=== PATIENT | male | born 1970 | race Caucasian/White ===

== ENCOUNTER 2022-12-22 16:08 | Outpatient (CLI) | payer BC, SELFPAY ==
--- NOTE | ~2022-12-22 | XR_ITS ---
AP and oblique views of the bilateral SI joints Comments: Rheumatoid arthritis FINDINGS: Bilateral SI joints and bilateral hip joints appear unremarkable. No erosive or sclerotic c hange. No degenerative change. Soft tissues are unremarkable. IMPRESSION: Unremarkable exam. Reviewed, dictated and finalized at location M. IMPRESSION: Unremarkable exam.
--- NOTE | ~2022-12-22 | XR_ITS ---
Right Shoulder Technique: AP and scapular Y views were obtained. Clinical History: Rheumatoid arthritis Findings: No fracture or dislocation is seen. Osseous alignment is anatomic. The glenohumeral and acr omioclavicular joint spaces are preserved. Soft tissues are unremarkable. Impression: Unremarkable right shoulder radiographs. Reviewed, dictated and finalized at location . Impression: Unremarkable right shoulder radiographs.
--- NOTE | ~2022-12-22 | XR_ITS ---
Left foot Technique: AP and lateral standing views were obtained. Clinical History: Rheumatoid arthritis Findings: No acute fracture or dislocation is seen. Osseous alignment is anatomic. Joint spaces are p reserved without erosive or degenerative change. Soft tissues are unremarkable. Impression: Unremarkable left foot radiographs. Reviewed, dictated and finalized at location . Impression: Unremarkable left foot radiographs.
--- NOTE | ~2022-12-22 | XR_ITS ---
Bilateral Hands Technique: Bilateral PA, oblique, and lateral views, and ball-catcher's view were obtained. Clinical History: Rheumatoid arthritis Findings: No acute fracture or dislocation is seen. Osseous alignment is anatomic. Joint spaces are p reserved. Soft tissues are unremarkable. Impression: Unremarkable bilateral hand radiographs. Reviewed, dictated and finalized at location . Impression: Unremarkable bilateral hand radiographs.
--- NOTE | ~2022-12-22 | XR_ITS ---
2 views of the left clavicle CLINICAL HISTORY: Rheumatoid arthritis FINDINGS: No fracture or dislocation seen. No erosive changes identified. Glenohumeral and AC joints are intact. Soft tissues are unremarkable. IMPRESSION: Unremarkable exam. Reviewed, dictated and finalized at location M. IMPRESSION: Unremarkable exam.
--- NOTE | ~2022-12-22 | XR_ITS ---
Right foot Technique: AP and lateral standing views were obtained. Clinical History: Rheumatoid arthritis Findings: No acute fracture or dislocation is seen. Osseous alignment is anatomic. Joint spaces are p reserved without erosive or degenerative change. Soft tissues are unremarkable. Impression: Unremarkable right foot radiographs. Reviewed, dictated and finalized at location . Impression: Unremarkable right foot radiographs.
--- NOTE | ~2022-12-22 | XR_ITS ---
Lumbosacral Spine: AP, oblique, and lateral views Clinical History: Pain Findings: The normal lordotic curve is maintained. No fracture or subluxation seen. There are mild de generative disc changes throughout the lumbar spine. There are mild facet joint degenerative changes throughout the lumbar spine. The sacroiliac joints are normally outlined. Impression: Mild degenerative spondylosis. Reviewed, dictated and finalized at location . Impression: Mild degenerative spondylosis.
== END 2022-12-22 16:09 | disposition home or self-care (01) ==
PROVIDERS: PCP Internal Medicine; Visit Provider Internal Medicine
DX: M79.659 Pain in unspecified thigh (principal); Z71.89 Other specified counseling; Z79.899 Other long term (current) drug therapy; M05.79 Rheumatoid arthritis with rheumatoid factor of multiple sites without organ or systems involvement; M25.511 Pain in right shoulder; M47.896 Other spondylosis, lumbar region; M53.3 Sacrococcygeal disorders, not elsewhere classified
CPT/HCPCS: 72110; 72202; 73000; 73030; 73130; 73620